=== PATIENT | female | born 1960 | race Caucasian/White ===

== ENCOUNTER 2022-01-13 06:00 | Day surgery (SDC) | payer MEDICARE ==
[2022-01-13] MEDS ORDERED: Pepcid 20 MG VIAL IV ONE (06:16)
[2022-01-13] MEDS ORDERED: Reglan 10 MG/2 ML IV ONE (06:16)
[2022-01-13] MEDS: Versed 2 MG/2 ML Injection IV PRN ×2 (06:24→06:55)
[2022-01-13] MEDS ORDERED: CEFAZOLIN 2 GM-D5W BAG** 2 GM/50 ML ML IV SCH (06:30)
[2022-01-13] MEDS ORDERED: Lactated Ringers 1,000 ML IV SCH (06:30)
[2022-01-13 06:49] LABS: BLOOD UREA NITROGEN 24 mg/dL (7-17); CHLORIDE 105 mmol/L (98-107); Calcium 9.3 mg/dL (8.4-10.2); Carbon Dioxide 30 mmol/L (22-30); Creatinine 1 0.83 mg/dL (0.52-1.04); EST GLOMERULAR FILTRATION RATE > 60.0 ML/MIN; Glucose 153 mg/dL (74-106); Potassium 4.4 mmol/L (3.5-5.1); SODIUM 139 mmol/L (137-145)
[2022-01-13] MEDS ORDERED: Zemuron 100 MG/10 ML ONE (06:59)
[2022-01-13] MEDS ORDERED: Zofran 4 MG/2 ML VIAL ONE (06:59)
[2022-01-13] MEDS ORDERED: Xylocaine-Mpf 2% 5 Ml Vial ONE (06:59)
[2022-01-13] MEDS ORDERED: DIPRIVAN 200 MG/20 ML IV ONE ×2 (06:59→09:30)
[2022-01-13] MEDS ORDERED: TORAdol 30 mg Injection ONE (06:59)
[2022-01-13] MEDS ORDERED: BRIDION 200MG/2ML IV ONE (06:59)
[2022-01-13] MEDS ORDERED: Versed 2 MG/2 ML Injection ONE (07:03)
[2022-01-13] MEDS ORDERED: SUBLIMAZE 100 MCG/2 ML ONE (07:04)
[2022-01-13] MEDS ORDERED: Naropin 0.5% 30 ML VIAL ONE (08:02)
[2022-01-13] MEDS ORDERED: Sodium Chloride 0.9% 1000 ML 1,000 ML ONE (08:22)
--- NOTE | 2022-01-13 08:58 | XRAY ---
Indication: Surgical revision left 4th metatarsal. Intraoperative fluoroscopy provided for 23 seconds. 2 digital spot images submitted for interpretation demonstrates 4th PIP fusion hardware, single 1st/4th metatarsal head screw, and old nonunited 3rd metatarsal head fracture. Correlate with intraoperative findings/report.
--- NOTE | 2022-01-13 09:02 | XRAY ---
23 seconds fluoroscopy time in surgery for left 4th metatarsal resection.
[2022-01-13] MEDS ORDERED: PHENYLEPHRINE HCL ONE (09:12)
[2022-01-13 09:47] VITALS: O2SAT 92
[2022-01-13 10:28] VITALS: BP 154/78; PULSE 81
--- NOTE | 2022-01-16 12:35 | OP ---
SURGERY DATE: 01/13/2022 SURGERY TIME: 729 PREOPERATIVE DIAGNOSIS: 1. GASTROCNEMIUS EQUINUS. 2. FOURTH METATARSAL DEFORMITY. 3. CALLUS SUB FOURTH METATARSAL HEAD WITH PREULCERATIVE LESION WELL SUB FIRST METATARSAL HEAD. 4. INGROWING TOENAIL HALLUX MEDIAL BORDER. 5. DIABETES MELLITUS, CONTROLLED. POSTOPERATIVE DIAGNOSIS: 1. GASTROCNEMIUS EQUINUS. 2. FOURTH METATARSAL DEFORMITY. 3. CALLUS SUB FOURTH METATARSAL HEAD WITH PREULCERATIVE LESION WELL SUB FIRST METATARSAL HEAD. 4. INGROWING TOENAIL HALLUX MEDIAL BORDER. 5. DIABETES MELLITUS, CONTROLLED. PROCEDURE: 1. Gastrocnemius resection. 2. Floating metatarsal head of 4th metatarsal osteotomy. 3. Callus debridement X 2. 4. Partial nail avulsion hallux with matrixectomy. SURGEON: Yadiel David D.P.M. VICE PRESIDENT OF BUSINESS DEVELOPMENT: None. ANESTHESIA: General. HEMOSTASIS: A pressure dressing. ESTIMATED BLOOD LOSS: Less than 4 cc. MATERIALS: 2-0 Vicryl and 3-0 Nylon. INJECTABLES: See anesthesia report for details. There was a regional block performed as well. Popliteal block postoperatively. INDICATIONS: Emma is a very pleasant 61-year-old female who has had a number of operations to her left foot to alleviate the forefoot pressure. All of the procedures were addressing her forefoot pathology. The result has been forefoot overload, plantar fat pad atrophy as well as a significant amount of pain with ambulation. The patient is extremely concerned as she develops calluses that are extremely painful sub 1st and 4th metatarsal heads. She has had multiple providers proceed with surgical intervention with minimal relief at least at long-term in regards to her forefoot overload. The patient is a diabetic and this is concerning because she has the potential to break down leading to ulceration which could be chronic and nonhealing and potentially lead to the situation where she has bone infection and needs to be managed from that standpoint. The patient presented to my office. At the time of clinical examination, the patient did have some concerns over proceeding with another procedure that would not likely address her pain. The patient was assessed and it was discovered that she does have a fairly significant gastrocnemius equinus. Given her significant amount of forefoot pathology and with demonstration of this issue, the patient wanted to proceed with addressing the issue at the posterior aspect of her calf to see if this offloads some of the forefoot pressure she was experiencing. In addition to that, in order to be thorough and offload the 4th metatarsal head before the callus breaks down into an ulceration, she would like to proceed with the floating metatarsal head osteotomy. Calluses were planned to be debride while the patient was under due to the fact that there was significant pain. These calluses locations were sub 1st metatarsal head and 4th metatarsal head and nail avulsion while under with matrixectomy to the medial border of the left hallux. The patient understands all risks, complications, and benefits of the procedure including, but not limited to, infection, hematoma, seroma, possible delayed bone healing or nonbone-healing. Given the floating metatarsal head osteotomy, the patient was instructed that according to literature, 60% of the metatarsal heads do not heal back in the plantar flexed position and they are elevated and sometimes they do not heal at all. Given patient's nature, this is likely not necessarily the worst complication that could occur. However, it can heal in a plantar flexed position. So, from that standpoint, patient wishes to proceed with surgical intervention. No guarantees were provided as to the outcome. It is with that, we decided to proceed. PROCEDURE DETAILS: The patient was brought in to the OR and placed on the OR table in the supine position. At this time, the left lower extremity was prepped and draped in the typical sterile fashion. Attention then was directed to the posteromedial aspect of the left calf. The patient's leg was frog-legged open to gain exposure to the posteromedial aspect. At this time, a 10 blade was utilized to make a skin incision just passed the level of the skin and the subcutaneous tissue. At this time, blunt dissection was performed. The crural fascia was identified and incised with a 15 blade. This was deepened once again with blunt retraction making sure not to damage any neurovascular structures along the way. At this time, a pediatric speculum was introduced and opened in the posterior aspect of the leg gaining full visualization of the gastrocnemius. A 15 blade was utilized to incise the gastrocnemius from lateral to medial being careful not to damage the sural nerve. This was tested. Any remaining fibrous bands were released from their contractures. At this time, copious amounts of sterile saline were flushed from the surgical site and a 2-0 Vicryl was utilized to coapt subcutaneous tissue and the skin was coapted utilizing 3-0 Nylon in a horizontal mattress type fashion. Following this, attention was directed to the 4th metatarsal head. A small pokehole incision was made utilizing a 15 blade in a horizontal orientation. A sagittal saw blade was introduced into the small deficit making sure not to damage the extensor mechanism. Under fluoroscopic guidance, the 4th metatarsal head was resected at the surgical neck until the osteotomy was complete. This was checked on live fluoroscopy and the metatarsal head was floating without any contracture or residual cortical 9.54 . After this, the calluses were debrided at the sub 4th metatarsal head and the 1st metatarsal head of the left foot. Following this, attention was directed to the ingrowing toenail at the medial border of the left hallux which a spatula toy packer was introduced underneath the nail in between the nail and the nail bed. An Pashto anvil to take the nail from the proximal aspect of the nail matrix underneath the eponychium. A curette was utilized to lightly scrape the nail matrix both 10.48 and dorsally and an 89% phenol solution was utilized for 90 seconds to attempt to destroy the nail matrix. Following this, 70% isopropyl alcohol was utilized to neutralize the phenol. A dressing to the toe was first applied consisting of Silvadene, Adaptic, 4 X 4, and 1" Coban and then the remainder of the dressing consisted of Betadine, Adaptic, 4 X 4, Kerlex, and Kevin. The patient was then provided a postoperative popliteal block and following the block, was returned to the PACU with vital signs stable and vascular status intact. The patient handled the anesthesia as well as the procedure without significant complication. POSTOPERATIVE ORDERS: As indicated in the patient's discharge chart.
== END 2022-01-13 10:40 | disposition home or self-care (01) ==
LOC: SDC 06:00
PROVIDERS: ATTEND Podiatrist Foot & Ankle Surgery
DX: M21.6X2 Other acquired deformities of left foot (principal); L84 Corns and callosities; E11.9 Type 2 diabetes mellitus without complications; L60.0 Ingrowing nail
CPT/HCPCS: 11056; 11730; 27687; 28308; 36415; 64450; 64486; 73620; 76000; 76937; 76942; 80048; 82947; 93005; J0690; J1885; J2250; J2370; J2405; J2704; J2795; J3010